=== PATIENT | female | born 1970 | race Caucasian/White ===

== ENCOUNTER 2020-05-28 21:40 | Emergency (ER) | payer SELFPAY ==
[~2020-05-28] VITALS: Ht 154.9 cm; Wt 59.0 kg
[2020-05-28] MEDS ORDERED: KETOROLAC 30MG/ML VIAL IV STA (22:53)
[2020-05-28 22:57] LABS: BASOPHILS % 0.5 % (0.0-2.0); EOSINOPHILS % 0.8 % (0.0-5.0); HEMATOCRIT. 35.2 % (36.0-48.0); HEMOGLOBIN. 11.8 g/dL (12.0-16.0); LYMPHOCYTES % 18.4 % (20.0-50.0); MEAN CORPUSCULAR HEMOGLOBIN 28.3 pg (28.0-32.0); MEAN CORPUSCULAR VOLUME 84.5 fL (81.0-99.0); MEAN PLATELET VOLUME 9.8 fl (7.4-10.4); MONOCYTES % 8.4 % (2.0-8.0); NEUTROPHILS % 71.9 % (40.0-76.0); PLATELET 249 x1000/uL (130-400); RED BLOOD CELL COUNT 4.17 mill/uL (4.2-5.4); RED CELL DISTRIBUTION WIDTH 14.5 % (11.6-14.6)
[2020-05-28] MEDS ORDERED: SODIUM CHLORIDE 0.9% 1,000 ML IV ONE (23:00)
[2020-05-28 23:03] LABS: CHLORIDE 97 mEq/L (98-107)
[2020-05-28 23:04] LABS: CLARITY URINE CLEAR (CLEAR); COLOR URINE YELLOW (YELLOW); KETONES URINE NEGATIVE (NEGATIVE); LEUKOCYTE ESTERASE URINE 1+ (NEGATIVE); NITRITE URINE POSITIVE (NEGATIVE); OCCULT BLOOD URINE NEGATIVE (NEGATIVE); PH URINE 6.5 (4.5-8.0); PROTEIN URINE NEGATIVE (NEGATIVE); SPECIFIC GRAVITY URINE 1.018 (1.005-1.030)
[2020-05-29] MEDS ORDERED: INSULIN REGULAR (HUMULIN R) 300UNITS/3ML VIAL SUBCUT ONE (00:45)
[2020-05-29] MEDS ORDERED: CEPH500T MT (01:33)
[2020-05-29 01:44] VITALS: BP 132/90
== END 2020-05-29 01:46 | disposition home or self-care (01) ==
LOC: ER 21:40
DX: E11.65 Type 2 diabetes mellitus with hyperglycemia (principal); N39.0 Urinary tract infection, site not specified; I10 Essential (primary) hypertension; Z79.4 Long term (current) use of insulin
CPT/HCPCS: 36415; 80053; 81003; 82962; 83690; 85025; 93005; 96361; 96372; 96374; 99284; J1815; J1885; J7030; Z7610

== ENCOUNTER → 2023-08-01 | Emergency (ER) | payer SELFPAY ==
[~2023-08-01] VITALS: Ht 154.9 cm; Wt 60.7 kg
[~2023-08-01] MED LIST: ASPI-1406 MT; ATOR80TA MT; CEPH500T MT; IBUP-2029 MT; NAPR-681 MT; SULF1TAB48 MT
[2023-08-01 19:30] VITALS: BP 175/89; PULSE 97; RESP 16; TEMP 98.9; O2SAT 98
== END ==
LOC: ER 19:00
DX: L03.116 Cellulitis of left lower limb (principal); E11.9 Type 2 diabetes mellitus without complications; I10 Essential (primary) hypertension; Z98.890 Other specified postprocedural states
CPT/HCPCS: 73630; 99283

== ENCOUNTER 2023-08-03 18:28 | Emergency (ER) | payer MEDICAID ==
[~2023-08-03] VITALS: Ht 154.9 cm; Wt 61.2 kg
[~2023-08-03 18:28] MED LIST changes: -ASPI-1406 MT; -ATOR80TA MT; -IBUP-2029 MT; -NAPR-681 MT
[2023-08-03 18:50] VITALS: O2SAT 100
[2023-08-03] MEDS ORDERED: NAPR-681 MT (19:47)
[2023-08-03 20:10] VITALS: BP 139/75; PULSE 84; RESP 16; TEMP 98.2
== END 2023-08-03 20:13 | disposition home or self-care (01) ==
LOC: ER 18:28
DX: L03.116 Cellulitis of left lower limb (principal); E11.9 Type 2 diabetes mellitus without complications; I10 Essential (primary) hypertension; Z98.890 Other specified postprocedural states
CPT/HCPCS: 99282